=== PATIENT | male | born 1950 | race Caucasian/White ===

== ENCOUNTER → 2017-07-08 | Outpatient (CLI) | payer MEDICARE ==
--- NOTE | 2017-07-08 13:18 | MR ---
EXAMINATION TYPE: MR knee LT wo con DATE OF EXAM: 07/08/2017 COMPARISON: Outside left knee x-ray May 28, 2017 HISTORY: Left knee pain per order. Inner pain for 3 months with history of arthroscopy TECHNIQUE: Multiplanar, multisequence images of the knee is performed without IV contrast. FINDINGS: MEDIAL MENISCUS: Anterior horn is intact without tear. There is oblique increased signal posterior ho rn of medial meniscus appears to extend to inferior articular surface, findings are suggestive of ful l-thickness meniscal tear. LATERAL MENISCUS: Anterior and posterior horns are intact without tear. CRUCIATE LIGAMENTS: The anterior and posterior cruciate ligaments are intact and unremarkable. COLLATERAL LIGAMENTS: The medial collateral ligament and lateral collateral ligament complex are inta ct and unremarkable. EXTENSOR MECHANISM: Visualized quadriceps and patellar tendons are intact. There is some thickening a nd increased signal distal quadriceps tendon. EFFUSION: No significant suprapatellar joint effusion. POPLITEAL CYST: No popliteal/nicole cyst. TRICOMPARTMENT SPACES: Mild to moderate tricompartment joint space loss is seen. There is mild to min imal tricompartment spurring. CARTILAGE: There is mild cartilaginous loss medial tibiofemoral compartment. BONE MARROW SIGNAL: No focal abnormal marrow signal is appreciated. OTHER: No additional significant abnormality is appreciated. IMPRESSION: 1. There is full-thickness tear posterior horn of medial meniscus. 2. There is background mild to moderate diffuse osteoarthritic changes. 3. Mild to moderate distal quadriceps tendinitis.
== END | disposition home or self-care (01) ==
LOC: RADMRIMAIN 12:03
PROVIDERS: ATTEND Orthopaedic Surgery
DX: S83.242A Other tear of medial meniscus, current injury, left knee, initial encounter (principal); M17.12 Unilateral primary osteoarthritis, left knee; M76.9 Unspecified enthesopathy, lower limb, excluding foot

== ENCOUNTER → 2017-08-03 | Outpatient (CLI) | payer MEDICARE ==
[2017-08-03 13:19] LABS: EKG EKG PERFORMED
[2017-08-03 14:01] LABS: Basophils % (A) 1 %; CH 30.6; CHCM 33.9; Eosinophils # (A) 0.1 k/uL (0-0.7); Eosinophils % (A) 2 %; HCT 48.7 % (39.0-53.0); HDW 2.47; HGB 16.3 gm/dL (13.0-17.5); Luc # (Auto) 0.13; Luc % (Auto) 2; Lymphocytes # (A) 1.5 k/uL (1.0-4.8); Lymphocytes % (A) 26 %; MCH 30.3 pg (25.0-35.0); MCHC 33.4 g/dL (31.0-37.0); MCV 90.6 fL (80.0-100.0); Monocytes # (A) 0.4 k/uL (0-1.0); Monocytes % (A) 8 %; Neutrophils # (A) 3.5 k/uL (1.3-7.7); Neutrophils % (A) 61 %; RBC 5.38 m/uL (4.30-5.90); RDW 12.6 % (11.5-15.5); WBC 5.7 k/uL (3.8-10.6); WBC (Perox) 5.47
[2017-08-03 14:14] LABS: Anion Gap 11 mmol/L; Carbon Dioxide 25 mmol/L (22-30); Chloride 104 mmol/L (98-107); Potassium 4.5 mmol/L (3.5-5.1); Sodium 140 mmol/L (137-145)
[2017-08-03 14:46] LABS: Partial Thromboplastin Time 24.3 sec (22.0-30.0); Prothrombin Time 10.3 sec (9.0-12.0)
== END | disposition home or self-care (01) ==
LOC: LABPAT 13:00
PROVIDERS: ATTEND Orthopaedic Surgery
DX: Z01.810 Encounter for preprocedural cardiovascular examination (principal); Z01.812 Encounter for preprocedural laboratory examination; M75.42 Impingement syndrome of left shoulder
CPT/HCPCS: 80051; 85025; 85610; 85730; 93005

== ENCOUNTER → 2017-09-02 | Outpatient (CLI) | payer MEDICARE ==
[2017-09-02 15:15] LABS: Basophils % (A) 1 %; CH 30.8; Eosinophils # (A) 0.2 k/uL (0-0.7); Eosinophils % (A) 3 %; HCT 49.4 % (39.0-53.0); HGB 16.3 gm/dL (13.0-17.5); Luc # (Auto) 0.14; Luc % (Auto) 2; Lymphocytes # (A) 1.8 k/uL (1.0-4.8); Lymphocytes % (A) 30 %; MCH 30.1 pg (25.0-35.0); MCV 91.1 fL (80.0-100.0); Mean Platelet Volume 7.9; Monocytes # (A) 0.5 k/uL (0-1.0); Monocytes % (A) 9 %; Neutrophils # (A) 3.3 k/uL (1.3-7.7); Neutrophils % (A) 55 %; RBC 5.42 m/uL (4.30-5.90); RDW 12.4 % (11.5-15.5); WBC 5.9 k/uL (3.8-10.6); WBC (Perox) 6.01
[2017-09-02 15:31] LABS: ALT 42 U/L (21-72); AST 31 U/L (17-59); Alkaline Phosphatase 70 U/L (38-126); Anion Gap 10 mmol/L; Blood Urea Nitrogen 14 mg/dL (9-20); Calcium 9.6 mg/dL (8.4-10.2); Carbon Dioxide 26 mmol/L (22-30); Chloride 105 mmol/L (98-107); Glucose 86 mg/dL (74-99); Non-African American GFR(MDRD) >60 (>60 ml/min/1.73 sqM); Potassium 4.2 mmol/L (3.5-5.1); Sodium 141 mmol/L (137-145); Total Bilirubin 0.5 mg/dL (0.2-1.3); Total Protein 6.8 g/dL (6.3-8.2)
[2017-09-02 17:08] LABS: Erythrocyte Sedimentation Rate 2 mm/hr (0-15)
[2017-09-02 19:38] LABS: Peanut IgE <0.10 kU/L; Soybean IgE <0.10 kU/L
[2017-09-03 10:56] LABS: Latex IgE Class CLASS 0
== END | disposition home or self-care (01) ==
LOC: LABWHC1 14:26
PROVIDERS: ATTEND Allergy & Immunology
DX: T78.3XXA Angioneurotic edema, initial encounter (principal)
CPT/HCPCS: 36415; 80053; 84443; 85025; 85652; 86003; 86160; 86161; 86376; 86800

== ENCOUNTER → 2019-02-15 | Outpatient (CLI) | payer MEDICARE | END | disposition home or self-care (01) | LOC: RADBDWWP 09:49 | DX: Z53.9 Procedure and treatment not carried out, unspecified reason (principal) ==

== ENCOUNTER 2020-03-27 10:38 | Inpatient (IN) | payer MEDICARE ==
[2020-03-27] MEDS ORDERED: SODIUM CHLORIDE 0.9% 500 ML 500 ML IV ONE (10:58)
[2020-03-27] MEDS ORDERED: ACETAMINOPHEN TAB 325 MG TAB PO STA (11:04)
[2020-03-27] MEDS ORDERED: SODIUM CHLORIDE 0.9% 1,000 ML IV ONE (11:05)
--- NOTE | 2020-03-27 11:12 | ED ---
Fever HPI <Basilio Cai - Last Filed: 03/27/20 13:39> - General Source: patient, family Mode of arrival: ambulatory Limitations: no limitations <Danielle Mclaughlin - Last Filed: 03/27/20 15:26> - General Chief Complaint: Fever Stated Complaint: abd pain Time Seen by Provider: 03/27/20 10:57 - History of Present Illness Initial Comments: 70-year-old male who denies significant PMH presenting today for chief complaint of fever dysuria. Patient states that he has had lower suprapubic pressure and pain when he urinates. Patient states he has also had a fever for the past week, + chills. Continued outside urinalysis ankle turned sensitivity that had no growth patient states he has been on antibiotics however due to an oral procedure. Patient denies chest pain, SOB, nausea, vomiting, diarrhea. Denies constipation. Patient denies cough, sore throat. Patient states he tested (-) for covid outpatient. Patient has no additional complaints. Upon arrival patient febrile 100.5F personally recorded temperature (as patient felt warmer than triage temperature). Hernia repair (left sided) in September 2019. (Danielle Mclaughlin) - Related Data Home Medications Medication Instructions Recorded Confirmed Aspirin [Adult Low Dose Aspirin EC] 81 mg PO DAILY 03/27/20 03/27/20 Atorvastatin Calcium [Lipitor] 20 mg PO DAILY 03/27/20 03/27/20 Levothyroxine Sodium [Synthroid] 75 mcg PO DAILY 03/27/20 03/27/20 Multivitamins, Thera [Multivitamin 1 tab PO DAILY 03/27/20 03/27/20 (formulary)] Omeprazole 20 mg PO DAILY 03/27/20 03/27/20 Zolpidem [Ambien] 5 mg PO HS PRN 03/27/20 03/27/20 Allergies Allergy/AdvReac Type Severity Reaction Status Date / Time levofloxacin [From Levaquin] Allergy Rash/Hives Verified 03/27/20 14:48 ibuprofen [From Advil] AdvReac Swelling Verified 03/27/20 14:47 Review of Systems ROS Other: All systems not noted in ROS Statement are negative. <Basilio Cai - Last Filed: 03/27/20 13:39> ROS Other: All systems not noted in ROS Statement are negative. <Danielle Mclaughlin - Last Filed: 03/27/20 15:26> ROS Statement: Those systems with pertinent positive or pertinent negative responses have been documented in the HPI. Past Medical History Past Medical History: No Reported History History of Any Multi-Drug Resistant Organisms: None Reported Past Surgical History: Hernia Repair Past Psychological History: No Psychological Hx Reported Smoking Status: Never smoker Past Alcohol Use History: Occasional Past Drug Use History: None Reported <Danielle Mclaughlin - Last Filed: 03/27/20 15:26> General Exam Limitations: no limitations <Danielle Mclaughlin - Last Filed: 03/27/20 15:26> Course <Basilio Cai - Last Filed: 03/27/20 13:39> <Danielle Mclaughlin - Last Filed: 03/27/20 15:26> Vital Signs 03/27/20 03/27/20 03/27/20 10:50 11:20 11:48 Temperature 98.4 F 100.5 F H 100.0 F H Pulse Rate 80 75 Respiratory 18 18 Rate Blood Pressure 105/73 120/79 O2 Sat by Pulse 96 96 Oximetry 03/27/20 13:00 Temperature Pulse Rate 88 Respiratory 20 Rate Blood Pressure 116/75 O2 Sat by Pulse 99 Oximetry - Reevaluation(s) Reevaluation #1: 03/27/20 13:40 PA supervision: I personally evaluate the case and the patient patient did present with complaints of chills and fever for the past week with dysuria BuSpar however the workup is consistent with a fever of unknown origin. Patient will be admitted the case was discussed with Dr. Lubin (Basilio Cai) Reevaluation #2: More focused exam, patient dose seem to have a small localized area of tenderness left lower abdomen, no obvious external abscess. 03/27/20 14:46 (Danielle Mclaughlin) Medical Decision Making - Lab Data Result diagrams: 03/27/20 11:10 03/27/20 11:10 <Basilio Cai - Last Filed: 03/27/20 13:39> - Lab Data Result diagrams: 03/27/20 11:10 03/27/20 11:10 <Danielle Mclaughlin - Last Filed: 03/27/20 15:26> - Medical Decision Making 70-year-old male presented for fevers 1 week. Lab stable patient does not appear toxic however he is febrile in the emergency department. Patient on initial examination has no severe focalize exam he has some suprapubic tenderness. Patient states he has had chronic pain and his hernia since September. He states there is no increase mild tenderness to palpation of the left lower abdomen over the hernia site. Initially patient did not feel this was related to his abdomen he thought it was a UTI. Urinalysis unremarkable. Culture pending. Blood culture pending. Troponin negative. CT was ordered given there is no known origin of fever revealing a rectus sheath abscess 5.[address] Keyes consulted who is agreeable to consulting his service. IV abx initiated in ER, added vancoymycin. Patient case accepted by Dr Restrepo. (Danielle Mclaughlin) - Lab Data Lab Results 03/27/20 03/27/20 03/27/20 Range/Units 11:10 11:10 11:10 WBC 9.3 (3.8-10.6) k/uL RBC 5.02 (4.30-5.90) m/uL Hgb 14.7 (13.0-17.5) gm/dL Hct 44.5 (39.0-53.0) % MCV 88.7 (80.0-100.0) fL MCH 29.4 (25.0-35.0) pg MCHC 33.1 (31.0-37.0) g/dL RDW 13.3 (11.5-15.5) % Plt Count 359 (150-450) k/uL Neutrophils % 76 % Lymphocytes % 15 % Monocytes % 6 % Eosinophils % 2 % Basophils % 0 % Neutrophils # 7.1 (1.3-7.7) k/uL Lymphocytes # 1.4 (1.0-4.8) k/uL Monocytes # 0.6 (0-1.0) k/uL Eosinophils # 0.1 (0-0.7) k/uL Basophils # 0.0 (0-0.2) k/uL Sodium (137-145) mmol/L Potassium (3.5-5.1) mmol/L Chloride (98-107) mmol/L Carbon Dioxide (22-30) mmol/L Anion Gap mmol/L BUN (9-20) mg/dL Creatinine (0.66-1.25) mg/dL Est GFR (CKD-EPI)AfAm (>60 ml/min/1.73 sqM) Est GFR (CKD-EPI)NonAf (>60 ml/min/1.73 sqM) Glucose (74-99) mg/dL Plasma Lactic Acid Jose (0.7-2.0) mmol/L Calcium (8.4-10.2) mg/dL Total Bilirubin (0.2-1.3) mg/dL AST (17-59) U/L ALT (4-49) U/L Alkaline Phosphatase (38-126) U/L Troponin I (0.000-0.034) ng/mL Total Protein (6.3-8.2) g/dL Albumin (3.5-5.0) g/dL Urine Color Yellow Urine Appearance Clear (Clear) Urine pH 5.5 (5.0-8.0) Ur Specific [place] 1.026 (1.001-1.035) Urine Protein Trace H (Negative) Urine Glucose (UA) Negative (Negative) Urine Ketones Negative (Negative) Urine Blood Negative (Negative) Urine Nitrite Negative (Negative) Urine Bilirubin Negative (Negative) Urine Urobilinogen 2.0 (<2.0) mg/dL Ur Leukocyte Esterase Negative (Negative) Heterophile Antibody Negative (Negative) 03/27/20 03/27/20 03/27/20 Range/Units 11:10 11:10 11:10 WBC (3.8-10.6) k/uL RBC (4.30-5.90) m/uL Hgb (13.0-17.5) gm/dL Hct (39.0-53.0) % MCV (80.0-100.0) fL MCH (25.0-35.0) pg MCHC (31.0-37.0) g/dL RDW (11.5-15.5) % Plt Count (150-450) k/uL Neutrophils % % Lymphocytes % % Monocytes % % Eosinophils % % Basophils % % Neutrophils # (1.3-7.7) k/uL Lymphocytes # (1.0-4.8) k/uL Monocytes # (0-1.0) k/uL Eosinophils # (0-0.7) k/uL Basophils # (0-0.2) k/uL Sodium 136 L (137-145) mmol/L Potassium 4.4 (3.5-5.1) mmol/L Chloride 103 (98-107) mmol/L Carbon Dioxide 24 (22-30) mmol/L Anion Gap 9 mmol/L BUN 13 (9-20) mg/dL Creatinine 0.63 L (0.66-1.25) mg/dL Est GFR (CKD-EPI)AfAm >90 (>60 ml/min/1.73 sqM) Est GFR (CKD-EPI)NonAf >90 (>60 ml/min/1.73 sqM) Glucose 110 H (74-99) mg/dL Plasma Lactic Acid Jose 1.2 (0.7-2.0) mmol/L Calcium 9.4 (8.4-10.2) mg/dL Total Bilirubin 0.7 (0.2-1.3) mg/dL AST 53 (17-59) U/L ALT 62 H (4-49) U/L Alkaline Phosphatase 69 (38-126) U/L Troponin I <0.012 (0.000-0.034) ng/mL Total Protein 6.5 (6.3-8.2) g/dL Albumin 3.6 (3.5-5.0) g/dL Urine Color Urine Appearance (Clear) Urine pH (5.0-8.0) Ur Specific [place] (1.001-1.035) Urine Protein (Negative) Urine Glucose (UA) (Negative) Urine Ketones (Negative) Urine Blood (Negative) Urine Nitrite (Negative) Urine Bilirubin (Negative) Urine Urobilinogen (<2.0) mg/dL Ur Leukocyte Esterase (Negative) Heterophile Antibody (Negative) Disposition <Basilio Cai - Last Filed: 03/27/20 13:39> Is patient prescribed a controlled substance at d/c from ED?: No Time of Disposition: 13:54 Decision to Admit Reason: Admit from EC Decision Date: 03/27/20 Decision Time: 13:54 <Danielle Mclaughlin - Last Filed: 03/27/20 15:26> Clinical Impression: Dysuria, Rectus sheath abscess Disposition: ADMITTED IP TO THIS [facility] Condition: Stable
[2020-03-27 11:34] LABS: Basophils % (A) 0 %; Eosinophils # (A) 0.1 k/uL (0-0.7); Eosinophils % (A) 2 %; HCT 44.5 % (39.0-53.0); HGB 14.7 gm/dL (13.0-17.5); Lymphocytes # (A) 1.4 k/uL (1.0-4.8); Lymphocytes % (A) 15 %; MCH 29.4 pg (25.0-35.0); MCHC 33.1 g/dL (31.0-37.0); MCV 88.7 fL (80.0-100.0); Mean Platelet Volume 7.5; Monocytes # (A) 0.6 k/uL (0-1.0); Monocytes % (A) 6 %; Neutrophils # (A) 7.1 k/uL (1.3-7.7); Neutrophils % (A) 76 %; Platelet Count 359 k/uL (150-450); RBC 5.02 m/uL (4.30-5.90); RDW 13.3 % (11.5-15.5); WBC 9.3 k/uL (3.8-10.6)
[2020-03-27 11:38] LABS: Appearance,Urine Clear (Clear); Bilirubin,Urine Negative (Negative); Blood,Urine Negative (Negative); Color,Urine Yellow; Glucose,Urine (UA) Negative (Negative); Ketones,Urine Negative (Negative); Leukocyte Esterase,Urine Negative (Negative); Nitrite,Urine Negative (Negative); PH, Urine 5.5 (5.0-8.0); Protein,Urine Trace (Negative); Specific Gravity,Urine 1.026 (1.001-1.035)
[2020-03-27 11:42] LABS: ALT 62 U/L (4-49); AST 53 U/L (17-59); African American GFR (CKD) >90 (>60 ml/min/1.73 sqM); Albumin 3.6 g/dL (3.5-5.0); Alkaline Phosphatase 69 U/L (38-126); Anion Gap 9 mmol/L; Blood Urea Nitrogen 13 mg/dL (9-20); Calcium 9.4 mg/dL (8.4-10.2); Carbon Dioxide 24 mmol/L (22-30); Chloride 103 mmol/L (98-107); Glucose 110 mg/dL (74-99); Non-African American GFR(CKD) >90 (>60 ml/min/1.73 sqM); Potassium 4.4 mmol/L (3.5-5.1); Sodium 136 mmol/L (137-145); Total Bilirubin 0.7 mg/dL (0.2-1.3); Total Protein 6.5 g/dL (6.3-8.2)
[2020-03-27] MEDS: SODIUM CHLORIDE 0.9% 1,000 ML IV SCH ×2 (12:08→20:57)
--- NOTE | 2020-03-27 13:38 | XR ---
EXAMINATION TYPE: XR chest 2V DATE OF EXAM: 03/27/2020 COMPARISON: NONE TECHNIQUE: PA and lateral views submitted. HISTORY: Fever and body aches FINDINGS: The lungs are clear and there is no pneumothorax, pleural effusion, or focal pneumonia. No overt fa ilure. Scoliotic curvature and hypertrophic changes spine. Diffuse osteopenia with arthropathy of the shoulders. IMPRESSION: 1. No acute process.
[2020-03-27] MEDS ORDERED: PIPERACILLIN-TAZOBACTAM 3.375 GM in SODIUM CHLORIDE 0.9% 100 ML IVPB STA (13:54)
[2020-03-27] MEDS ORDERED: NALOXONE 0.4 MG/ML 1 ML VIAL IV PRN ×2 (13:54→15:39)
--- NOTE | 2020-03-27 14:24 | CT ---
EXAMINATION TYPE: CT abdomen pelvis w con DATE OF EXAM: 03/27/2020 COMPARISON: Fever of unknown origin and dysuria HISTORY: Fever of unknown origin. Dysuria. CT DLP: 1218.2 mGycm Automated exposure control for dose reduction was used. CONTRAST: CT scan of the abdomen pelvis is performed with IV Contrast, patient injected with 100 mL of Isovue 3 00. FINDINGS- LUNG BASES- No significant abnormality is appreciated. LIVER/GB- No gross abnormality is appreciated. PANCREAS- No gross abnormality is seen. SPLEEN- No gross abnormality is seen. ADRENALS- No gross abnormality is seen. KIDNEYS/BLADDER- no hydronephrosis nephrolithiasis or renal mass. BOWEL-bowel gas pattern nonspecific. Changes of diverticulosis noted. Small hiatal hernia noted.. LYMPH NODES- No greater than 1cm abdominal or pelvic lymph nodes areappreciated. OSSEOUS STRUCTURES-hypertrophic and degenerative change of the spine.. OTHER- there is a abnormal fluid collection anterior to the bladder on the left measuring 5.5 x 3.7 cm highly suggestive of an abscess. Extends from the pubic ramus superiorly toward the rectus muscle. There is a left diaphragmatic defect. IMPRESSION- 1. Posterior to the left rectus muscle there is a 5.5 cm suspected abscess. Correlate clinically.
[2020-03-27] MEDS ORDERED: VANCOMYCIN IV PER PHARMACY 1 EACH MISC MISCELLANE PRN ×2 (14:46→15:27)
[2020-03-27] MEDS ORDERED: VANCOMYCIN 1,500 MG in SODIUM CHLORIDE 0.9% 250 ML IVPB SCH (15:30)
--- NOTE | 2020-03-27 15:39 | P.HPIM ---
History of Present Illness H&P Date: 03/27/20 Chief Complaint: Fever 70-year-old male with history of hypothyroidism and hyperlipidemia presented to the emergency department because of persistent fevers, chills and headaches. He also has left lower quadrant abdominal pain, as well as lower suprapubic pressure, no nausea or vomiting. No chills. He also is complaining from urinary symptoms that includes hesitency and slow flow. No dysuria. Symptoms have been going on for the past week. He recently had a root canal and has been on clindamycin for the past month. Just finished it a few days ago. According to patient he followed up with a dentist and everything looked good. No chest pain or shortness of breath. No sick contacts, no runny nose or sore throat. Patient states he tested (-) for covid outpatient. Patient has no additional complaints. Upon arrival to the ER he was febrile with temp of 100.5F. CT scan of the abdomen and pelvis showed intraabdominal abscess in front of the rectus muscle on the left, anterior to the bladder. He was subseqently admitted for further evaluation and treatment. Review of Systems Complete review of system performed, pertinent positives per HPI otherwise negative Past Medical History Past Medical History: No Reported History History of Any Multi-Drug Resistant Organisms: None Reported Past Surgical History: Hernia Repair Past Psychological History: No Psychological Hx Reported Smoking Status: Never smoker Past Alcohol Use History: Occasional Past Drug Use History: None Reported Medications and Allergies Home Medications Medication Instructions Recorded Confirmed Type Aspirin [Adult Low Dose Aspirin EC] 81 mg PO DAILY 03/27/20 03/27/20 History Atorvastatin Calcium [Lipitor] 20 mg PO DAILY 03/27/20 03/27/20 History Levothyroxine Sodium [Synthroid] 75 mcg PO DAILY 03/27/20 03/27/20 History Multivitamins, Thera [Multivitamin 1 tab PO DAILY 03/27/20 03/27/20 History (formulary)] Omeprazole 20 mg PO DAILY 03/27/20 03/27/20 History Zolpidem [Ambien] 5 mg PO HS PRN 03/27/20 03/27/20 History Allergies Allergy/AdvReac Type Severity Reaction Status Date / Time levofloxacin [From Levaquin] Allergy Rash/Hives Verified 03/27/20 14:48 ibuprofen [From Advil] AdvReac Swelling Verified 03/27/20 14:47 Physical Exam Vitals: Vital Signs Temp Pulse Resp BP Pulse Ox 03/27/20 13:00 88 20 116/75 99 03/27/20 11:48 100.0 F H 75 18 120/79 96 03/27/20 11:20 100.5 F H 03/27/20 10:50 98.4 F 80 18 105/73 96 Intake and Output 03/26/20 03/27/20 03/27/20 22:59 06:59 14:59 Other: Weight 84.368 kg Constitutional: No acute distress, conversant, pleasant Eyes:Anicteric sclerae, moist conjunctiva, no lid-lag, PERRLA, ENMT: Oropharynx clear, no erythema, exudates Neck: Supple, FROM, no masses, or JVD, No carotid bruits, No thyromegaly Lungs: Clear to auscultation, Clear to percussion, Normal respiratory effort, no accessory muscle use Cardiovascular: Heart regular in rate and rhythm, No murmurs, gallops, or rubs, No peripheral edema Abdominal: Soft, tender in the suprapubic and the LLQ areas, no guarding, reboun d or rigidity, Normoactive bowel sounds, No hepatomegaly, No splenomegaly, No palpable mass Skin: Normal temperature, tone, texture, turgor, no induration, No subcutaneous nodules, No rash, lesions, No ulcers Extremities: No digital cyanosis, No clubbing, Pedal pulses intact and symmetrical, Radial pulses intact and symmetrical, No calf tenderness Psychiatric: Alert and oriented to person, place and time, appropriate affect, intact judgement Neuro: Muscles Strength 5/5 in all 4 extremities, Sensation to light touch grossly present throughout, Cranial nerves II-XII grossly intact, no focal sensory deficits Results CBC & Chem 7: 03/27/20 11:10 03/27/20 11:10 Labs: Abnormal Lab Results - Last 24 Hours (Table) 03/27/20 03/27/20 Range/Units 11:10 11:10 Sodium 136 L (137-145) mmol/L Creatinine 0.63 L (0.66-1.25) mg/dL Glucose 110 H (74-99) mg/dL ALT 62 H (4-49) U/L Urine Protein Trace H (Negative) Assessment and Plan Plan: Intraabdominal abscess Start zosyn Consult general surgery and urology Tylenol prn for fevers and pain Chronic medical issues: Hypothyroidism Hyperlipidemia Mild COPD Stable Resume home meds Admitted to inpatient expected length of stay more than 2 midnights
[2020-03-27] MEDS: ACETAMINOPHEN TAB 325 MG TAB PO SCH ×2 (15:55→21:06)
--- NOTE | 2020-03-27 18:25 | P.GSCN ---
History of Present Illness Consult date: 03/27/20 Reason for Consult: Rectus sheath abscess History of present illness: This a 70-year-old male who presented with possible colitis abdominal pain. Patient underwent previous robotic-assisted repair of inguinal hernia proximal to 6 months ago. Patient developed a left-sided rectus sheath abscess. Patient had pain and fevers for the last 24 hours. Past Medical History Past Medical History: No Reported History History of Any Multi-Drug Resistant Organisms: None Reported Past Surgical History: Hernia Repair Past Psychological History: No Psychological Hx Reported Smoking Status: Never smoker Past Alcohol Use History: Occasional Past Drug Use History: None Reported Medications and Allergies Home Medications Medication Instructions Recorded Confirmed Type Aspirin [Adult Low Dose Aspirin EC] 81 mg PO DAILY 03/27/20 03/27/20 History Atorvastatin Calcium [Lipitor] 20 mg PO DAILY 03/27/20 03/27/20 History Levothyroxine Sodium [Synthroid] 75 mcg PO DAILY 03/27/20 03/27/20 History Multivitamins, Thera [Multivitamin 1 tab PO DAILY 03/27/20 03/27/20 History (formulary)] Omeprazole 20 mg PO DAILY 03/27/20 03/27/20 History Zolpidem [Ambien] 5 mg PO HS PRN 03/27/20 03/27/20 History Allergies Allergy/AdvReac Type Severity Reaction Status Date / Time levofloxacin [From Levaquin] Allergy Rash/Hives Verified 03/27/20 14:48 ibuprofen [From Advil] AdvReac Swelling Verified 03/27/20 14:47 Surgical - Exam Vital Signs Temp Pulse Resp BP Pulse Ox 98.4 F 80 18 105/73 96 03/27/20 10:50 03/27/20 10:50 03/27/20 10:50 03/27/20 10:50 03/27/20 10:50 - General well developed, well nourished, no distress - Eyes PERRL - ENT normal pinna - Neck no masses - Respiratory normal expansion - Cardiovascular Rhythm: regular - Abdomen Minimal tenderness left lower quadrant Abdomen: soft Results - Labs 03/27/20 11:10 03/27/20 11:10 Abnormal Lab Results - Last 24 Hours (Table) 03/27/20 03/27/20 Range/Units 11:10 11:10 Sodium 136 L (137-145) mmol/L Creatinine 0.63 L (0.66-1.25) mg/dL Glucose 110 H (74-99) mg/dL ALT 62 H (4-49) U/L Urine Protein Trace H (Negative) Microbiology - Last 24 Hours (Table) 03/27/20 11:10 Urine Culture - Preliminary Urine,Voided Diabetes panel 03/27/20 Range/Units 11:10 Sodium 136 L (137-145) mmol/L Potassium 4.4 (3.5-5.1) mmol/L Chloride 103 (98-107) mmol/L Carbon Dioxide 24 (22-30) mmol/L BUN 13 (9-20) mg/dL Creatinine 0.63 L (0.66-1.25) mg/dL Glucose 110 H (74-99) mg/dL Calcium 9.4 (8.4-10.2) mg/dL AST 53 (17-59) U/L ALT 62 H (4-49) U/L Alkaline Phosphatase 69 (38-126) U/L Total Protein 6.5 (6.3-8.2) g/dL Albumin 3.6 (3.5-5.0) g/dL Calcium panel 03/27/20 Range/Units 11:10 Calcium 9.4 (8.4-10.2) mg/dL Albumin 3.6 (3.5-5.0) g/dL Pituitary panel 03/27/20 Range/Units 11:10 Sodium 136 L (137-145) mmol/L Potassium 4.4 (3.5-5.1) mmol/L Chloride 103 (98-107) mmol/L Carbon Dioxide 24 (22-30) mmol/L BUN 13 (9-20) mg/dL Creatinine 0.63 L (0.66-1.25) mg/dL Glucose 110 H (74-99) mg/dL Calcium 9.4 (8.4-10.2) mg/dL Adrenal panel 03/27/20 Range/Units 11:10 Sodium 136 L (137-145) mmol/L Potassium 4.4 (3.5-5.1) mmol/L Chloride 103 (98-107) mmol/L Carbon Dioxide 24 (22-30) mmol/L BUN 13 (9-20) mg/dL Creatinine 0.63 L (0.66-1.25) mg/dL Glucose 110 H (74-99) mg/dL Calcium 9.4 (8.4-10.2) mg/dL Total Bilirubin 0.7 (0.2-1.3) mg/dL AST 53 (17-59) U/L ALT 62 H (4-49) U/L Alkaline Phosphatase 69 (38-126) U/L Total Protein 6.5 (6.3-8.2) g/dL Albumin 3.6 (3.5-5.0) g/dL - Imaging CT scan - abdomen: report reviewed (6 cm posterior left rectus sheath abscess) Assessment and Plan Assessment: Posterior rectus sheath abscess. We'll consult interventional radiology for po tential drainage.
[2020-03-28] MEDS: PIPERACILLIN-TAZOBACTAM 3.375 GM in SODIUM CHLORIDE 0.9% 100 ML IVPB SCH ×4 (00:48→22:49)
[2020-03-28] MEDS: ACETAMINOPHEN TAB 325 MG TAB PO SCH ×4 (03:14→20:21)
[2020-03-28] MEDS: LEVOTHYROXINE 75 MCG TAB PO SCH (05:47)
[2020-03-28] MEDS: SODIUM CHLORIDE 0.9% 1,000 ML IV SCH ×2 (05:47→15:11)
[2020-03-28] MEDS: MULTIVITAMINS, THERA 1 EACH TAB PO SCH (07:17)
[2020-03-28] MEDS: ATORVASTATIN 20 MG TAB PO SCH (07:17)
[2020-03-28] MEDS: ASPIRIN 81 MG PO SCH (07:17)
[2020-03-28] MEDS: PANTOPRAZOLE 40 MG TABLET PO SCH (07:21)
[2020-03-28] MEDS: HYDROmorphone 1 MG/ML 1 ML SYRINGE IVP PRN ×3 (08:24→22:49)
[2020-03-28 09:07] LABS: Basophils % (A) 0 %; Eosinophils # (A) 0.2 k/uL (0-0.7); Eosinophils % (A) 2 %; HCT 39.8 % (39.0-53.0); HGB 13.4 gm/dL (13.0-17.5); Lymphocytes % (A) 13 %; MCHC 33.7 g/dL (31.0-37.0); Mean Platelet Volume 7.7; Monocytes # (A) 0.5 k/uL (0-1.0); Monocytes % (A) 6 %; Neutrophils # (A) 6.3 k/uL (1.3-7.7); Neutrophils % (A) 77 %; Platelet Count 360 k/uL (150-450); RBC 4.47 m/uL (4.30-5.90); RDW 13.1 % (11.5-15.5); WBC 8.2 k/uL (3.8-10.6)
[2020-03-28 09:24] LABS: ALT 56 U/L (4-49); AST 42 U/L (17-59); African American GFR (CKD) >90 (>60 ml/min/1.73 sqM); Albumin 3.1 g/dL (3.5-5.0); Alkaline Phosphatase 66 U/L (38-126); Anion Gap 7 mmol/L; Blood Urea Nitrogen 8 mg/dL (9-20); Calcium 8.7 mg/dL (8.4-10.2); Carbon Dioxide 23 mmol/L (22-30); Chloride 107 mmol/L (98-107); Glucose 89 mg/dL (74-99); Magnesium 1.9 mg/dL (1.6-2.3); Non-African American GFR(CKD) >90 (>60 ml/min/1.73 sqM); Phosphorus 3.3 mg/dL (2.5-4.5); Potassium 4.2 mmol/L (3.5-5.1); Sodium 137 mmol/L (137-145); Total Bilirubin 0.7 mg/dL (0.2-1.3); Total Protein 5.8 g/dL (6.3-8.2)
[2020-03-28 10:01] LABS: Prothrombin Time 10.2 sec (9.0-12.0)
[2020-03-28] MEDS: ONDANSETRON 4 MG/2 ML VIAL IVP PRN (10:43)
--- NOTE | 2020-03-28 11:57 | P.PN ---
Subjective Progress Note Date: 03/28/20 Principal diagnosis: Groin pain Patient has been having a lot of left groin pain. He was given IV Dilaudid and it barely helped him. No nausea or vomiting. Objective - Vital Signs Vital signs: Vital Signs Temp 99.0 F 03/28/20 07:00 Pulse 71 03/28/20 07:00 Resp 18 03/28/20 07:00 BP 115/69 03/28/20 07:00 Pulse Ox 96 03/28/20 07:00 Intake & Output 03/27/20 03/28/20 03/28/20 18:59 06:59 18:59 Weight 84.368 kg 84.368 kg Other: Voiding Method Toilet - Exam Constitutional: No acute distress, conversant, pleasant Eyes:Anicteric sclerae, moist conjunctiva, no lid-lag, PERRLA, ENMT: Oropharynx clear, no erythema, exudates Neck: Supple, FROM, no masses, or JVD, No carotid bruits, No thyromegaly Lungs: Clear to auscultation, Clear to percussion, Normal respiratory effort, no accessory muscle use Cardiovascular: Heart regular in rate and rhythm, No murmurs, gallops, or rubs, No peripheral edema Abdominal: Soft, tender in the suprapubic and the LLQ areas, no guarding, rebound or rigidity, Normoactive bowel sounds, No hepatomegaly, No splenomegaly, No palpable mass Skin: Normal temperature, tone, texture, turgor, no induration, No subcutaneous nodules, No rash, lesions, No ulcers Extremities: No digital cyanosis, No clubbing, Pedal pulses intact and symmetrical, Radial pulses intact and symmetrical, No calf tenderness Psychiatric: Alert and oriented to person, place and time, appropriate affect, intact judgement Neuro: Muscles Strength 5/5 in all 4 extremities, Sensation to light touch grossly present throughout, Cranial nerves II-XII grossly intact, no focal sensory deficits - Labs CBC & Chem 7: 03/28/20 08:22 03/28/20 08:22 Labs: Abnormal Lab Results - Last 24 Hours (Table) 03/27/20 03/27/20 03/28/20 Range/Units 11:10 11:10 08:22 Sodium 136 L (137-145) mmol/L BUN 8 L (9-20) mg/dL Creatinine 0.63 L 0.60 L (0.66-1.25) mg/dL Glucose 110 H (74-99) mg/dL ALT 62 H 56 H (4-49) U/L Total Protein 5.8 L (6.3-8.2) g/dL Albumin 3.1 L (3.5-5.0) g/dL Urine Protein Trace H (Negative) Microbiology - Last 24 Hours (Table) 03/27/20 11:10 Urine Culture - Preliminary Urine,Voided Assessment and Plan Plan: Intraabdominal abscess Continue zosyn Seen by general surgery, plan for IR drainage Consult urology, abscess close to the bladder and patient having urinary symptoms Tylenol and dilaudid prn for fevers and pain Add miralax for constipation prophylaxis Chronic medical issues: Hypothyroidism Hyperlipidemia Mild COPD Stable Resume home meds Anticipated discharge: 2-3 days Disposition: home
[2020-03-28] MEDS: POLYETHYLENE GLYCOL 3350 17 GM POWD.PACK PO SCH (13:58)
--- NOTE | 2020-03-28 14:03 | CT ---
EXAMINATION TYPE: CT guided abscess drainage DATE OF EXAM: 03/28/2020 HISTORY: Status post hernia repair, abdominal fluid collection COMPARISON: CT dated 03/27/2020 PROCEDURE: Maximal barrier technique was utilized. The skin over suitable path to the abdominal fluid collectio n in the lower abdomen anteriorly was localized with CT and the overlying skin prepped and draped. L idocaine was used for local anesthesia. A skin chely made with a scalpel. Access was gained using CT guidance with a 21-gauge needle, clear yellow material returned in the hub of the needle. A 0.018 i nch wire was advanced and the access site was upsized, the wire was upsized and subsequently an 8.5-F rench drain was deployed within the fluid cavity and fixed in place. Catheter attached to hal lozada. Catheter placement verified with CT. No immediate complication. 20 cc yellow fluid material s ent for laboratory analysis and draining into the bag. The patient remained in stable condition. IMPRESSION: STATUS POST CT GUIDED ABSCESS DRAINAGE, MICROBIOLOGY ANALYSIS IS PENDING. THIS PROCEDURE WAS PERFORM ED BY THE UNDERSIGNED.
[2020-03-28] MEDS: HYDROcodone/APAP 5-325MG 1 EACH TAB PO PRN ×2 (15:01→18:32)
--- NOTE | 2020-03-28 15:40 | P.PN ---
Progress Note - Text Progress Note Date: 03/28/20 The patient is feeling better. He underwent CT-guided drainage of his abdominal abscess. Approximately 30 mL of purulent fluid was removed. There is a draining catheter in place. On exam his vital signs are stable. His abdomen soft. Status post radiologic drainage of abdominal abscess. Patient received IV antibiotic. We will follow carefully.
[2020-03-29] MEDS ORDERED: ACETAMINOPHEN TAB 325 MG TAB ONE (03:35)
[2020-03-29] MEDS ORDERED: HYDROmorphone 1 MG/ML 1 ML SYRINGE ONE (03:35)
[2020-03-29] MEDS: ACETAMINOPHEN TAB 325 MG TAB PO SCH ×4 (04:55→19:59)
[2020-03-29] MEDS: ONDANSETRON 4 MG/2 ML VIAL IVP PRN (05:06)
[2020-03-29] MEDS: SODIUM CHLORIDE 0.9% 1,000 ML IV SCH ×3 (05:18→19:59)
[2020-03-29] MEDS: LEVOTHYROXINE 75 MCG TAB PO SCH (05:19)
[2020-03-29] MEDS ORDERED: KETOROLAC 30 MG/ML 1 ML VIAL IVP PRN (07:25)
[2020-03-29] MEDS: ASPIRIN 81 MG PO SCH (07:42)
[2020-03-29] MEDS: MULTIVITAMINS, THERA 1 EACH TAB PO SCH (07:42)
[2020-03-29] MEDS: ATORVASTATIN 20 MG TAB PO SCH (07:42)
[2020-03-29] MEDS: PIPERACILLIN-TAZOBACTAM 3.375 GM in SODIUM CHLORIDE 0.9% 100 ML IVPB SCH ×3 (07:44→23:22)
[2020-03-29] MEDS: POLYETHYLENE GLYCOL 3350 17 GM POWD.PACK PO SCH (07:44)
[2020-03-29] MEDS: PANTOPRAZOLE 40 MG TABLET PO SCH (07:44)
[2020-03-29 07:51] LABS: African American GFR (CKD) >90 (>60 ml/min/1.73 sqM); Non-African American GFR(CKD) >90 (>60 ml/min/1.73 sqM)
[2020-03-29] MEDS ORDERED: BUTALB/APAP/CAFF 50-325-40MG TAB PO STA (10:06)
--- NOTE | 2020-03-29 10:12 | P.PN ---
Subjective Progress Note Date: 03/29/20 Principal diagnosis: Groin pain Having severe headaches and has not slept well last night due to that. No fevers. He does have headaches like this normally and it is not something new to him. No chest pain or sob. Objective - Vital Signs Vital signs: Vital Signs Temp 98.4 F 03/29/20 07:00 Pulse 54 L 03/29/20 07:00 Resp 17 03/29/20 07:00 BP 119/74 03/29/20 07:00 Pulse Ox 95 03/29/20 07:00 Intake & Output 03/28/20 03/29/20 03/29/20 18:59 06:59 18:59 Other: Voiding Method Toilet # Voids 3 - Exam Constitutional: No acute distress, conversant, pleasant Eyes:Anicteric sclerae, moist conjunctiva, no lid-lag, PERRLA, ENMT: Oropharynx clear, no erythema, exudates Neck: Supple, FROM, no masses, or JVD, No carotid bruits, No thyromegaly Lungs: Clear to auscultation, Clear to percussion, Normal respiratory effort, no accessory muscle use Cardiovascular: Heart regular in rate and rhythm, No murmurs, gallops, or rubs, No peripheral edema Abdominal: Soft, tender in the suprapubic and the LLQ areas, no guarding, rebound or rigidity, Normoactive bowel sounds, No hepatomegaly, No splenomegaly, No palpable mass Skin: Normal temperature, tone, texture, turgor, no induration, No subcutaneous nodules, No rash, lesions, No ulcers Extremities: No digital cyanosis, No clubbing, Pedal pulses intact and symmetrical, Radial pulses intact and symmetrical, No calf tenderness Psychiatric: Alert and oriented to person, place and time, appropriate affect, intact judgement Neuro: Muscles Strength 5/5 in all 4 extremities, Sensation to light touch grossly present throughout, Cranial nerves II-XII grossly intact, no focal sensory deficits - Labs CBC & Chem 7: 03/28/20 08:22 03/29/20 07:16 Labs: Abnormal Lab Results - Last 24 Hours (Table) 03/29/20 Range/Units 07:16 Creatinine 0.55 L (0.66-1.25) mg/dL Microbiology - Last 24 Hours (Table) 03/28/20 13:00 Gram Stain - Preliminary Peritoneal Fluid Body Fluid Culture - Preliminary 03/28/20 13:00 Anaerobic Culture - Preliminary Peritoneal Fluid 03/27/20 11:10 Urine Culture - Final Urine,Voided 03/27/20 12:00 Blood Culture - Preliminary Blood No Growth after 24 hours Assessment and Plan Plan: Intraabdominal abscess s/p hernia repair surgery in september last year Continue zosyn S/p CT guided drainage by IR, now has a drain in place. Cultures sent awaiting results. Followed by general surgery, Add fioricet and toradol for headaches Tylenol and dilaudid prn for fevers and pain Miralax for constipation prophylaxis Chronic medical issues: Hypothyroidism Hyperlipidemia Mild COPD Stable Resume home meds Anticipated discharge: 2-3 days Disposition: home
--- NOTE | 2020-03-29 11:47 | P.PN ---
Progress Note - Text Progress Note Date: 03/29/20 Patient resting comfortably in bed. He has complaints of migraines at night. On exam his vital signs are stable. Abdomen soft. Drainage catheter has some serosanguineous drainage. Status post radiological drainage of abdominal abscess. Patient will receive IV antibiotics. Despite discharged home tomorrow.
[2020-03-29] MEDS ORDERED: diphenhydrAMINE 50 MG/ML 1 ML VIAL IVP STA (14:13)
[2020-03-29] MEDS: KETOROLAC 30 MG/ML 1 ML VIAL IVP SCH ×2 (14:27→16:42)
--- NOTE | 2020-03-29 16:10 | P.GSCN ---
History of Present Illness Consult date: 03/29/20 Reason for Consult: dysuria History of present illness: Mr Lucero is a 70-year-old male admitted to the hospital with rectal sheath abscess and fever. He also is complaining from urinary symptoms that includes hesitancy, weak stream and urgency. Those symptoms are of new onset. . CT scan of the abdomen and pelvis showed intraabdominal abscess in front of the rectus muscle on the left, anterior to the bladder. He was subseqently admitted for further evaluation and treatment. indicates since IR abscess drainage has noticed some improvement of bladder symptoms. Denies any gross hematuria. He has family history of prostate cancer Review of Systems - Constitutional Reports chills, Reports fever - Cardiovascular Denies chest pain, Denies dyspnea on exertion - Respiratory Denies cough, Denies dyspnea - Genitourinary Reports dysuria, Reports urinary frequency, Reports urinary hesitancy, Denies flank pain, Denies hematuria, Denies incontinence - Psychiatric Denies anxiety, Denies confusion Past Medical History Past Medical History: GERD/Reflux, Thyroid Disorder History of Any Multi-Drug Resistant Organisms: None Reported Past Surgical History: Hernia Repair, Orthopedic Surgery Past Anesthesia/Blood Transfusion Reactions: No Reported Reaction Past Psychological History: No Psychological Hx Reported Smoking Status: Former smoker Past Alcohol Use History: Occasional Past Drug Use History: None Reported Medications and Allergies Home Medications Medication Instructions Recorded Confirmed Type Aspirin [Adult Low Dose Aspirin EC] 81 mg PO DAILY 03/27/20 03/27/20 History Atorvastatin Calcium [Lipitor] 20 mg PO DAILY 03/27/20 03/27/20 History Levothyroxine Sodium [Synthroid] 75 mcg PO DAILY 03/27/20 03/27/20 History Multivitamins, Thera [Multivitamin 1 tab PO DAILY 03/27/20 03/27/20 History (formulary)] Omeprazole 20 mg PO DAILY 03/27/20 03/27/20 History Zolpidem [Ambien] 5 mg PO HS PRN 03/27/20 03/27/20 History Allergies Allergy/AdvReac Type Severity Reaction Status Date / Time levofloxacin [From Levaquin] Allergy Rash/Hives Verified 03/28/20 12:31 ibuprofen [From Advil] AdvReac Swelling Verified 03/28/20 12:31 Surgical - Exam Vital Signs Temp Pulse Resp BP Pulse Ox 98.4 F 80 18 105/73 96 03/27/20 10:50 03/27/20 10:50 03/27/20 10:50 03/27/20 10:50 03/27/20 10:50 - General well developed, well nourished, no distress, no pain - Eyes PERRL, normal ocular movement - Respiratory normal expansion, normal respiratory effort - Abdomen Abdomen: soft, non tender, no distended - Psychiatric oriented to time, oriented to person, oriented to place, speech is normal Results - Labs 03/28/20 08:22 03/29/20 07:16 Abnormal Lab Results - Last 24 Hours (Table) 03/28/20 Range/Units 08:22 BUN 8 L (9-20) mg/dL Creatinine 0.60 L (0.66-1.25) mg/dL ALT 56 H (4-49) U/L Total Protein 5.8 L (6.3-8.2) g/dL Albumin 3.1 L (3.5-5.0) g/dL Microbiology - Last 24 Hours (Table) 03/27/20 12:00 Blood Culture - Preliminary Blood No Growth after 24 hours 03/27/20 11:10 Urine Culture - Preliminary Urine,Voided Diabetes panel 03/28/20 Range/Units 08:22 Sodium 137 (137-145) mmol/L Potassium 4.2 (3.5-5.1) mmol/L Chloride 107 (98-107) mmol/L Carbon Dioxide 23 (22-30) mmol/L BUN 8 L (9-20) mg/dL Creatinine 0.60 L (0.66-1.25) mg/dL Glucose 89 (74-99) mg/dL Calcium 8.7 (8.4-10.2) mg/dL AST 42 (17-59) U/L ALT 56 H (4-49) U/L Alkaline Phosphatase 66 (38-126) U/L Total Protein 5.8 L (6.3-8.2) g/dL Albumin 3.1 L (3.5-5.0) g/dL Calcium panel 03/28/20 Range/Units 08:22 Calcium 8.7 (8.4-10.2) mg/dL Phosphorus 3.3 (2.5-4.5) mg/dL Albumin 3.1 L (3.5-5.0) g/dL Pituitary panel 03/28/20 Range/Units 08:22 Sodium 137 (137-145) mmol/L Potassium 4.2 (3.5-5.1) mmol/L Chloride 107 (98-107) mmol/L Carbon Dioxide 23 (22-30) mmol/L BUN 8 L (9-20) mg/dL Creatinine 0.60 L (0.66-1.25) mg/dL Glucose 89 (74-99) mg/dL Calcium 8.7 (8.4-10.2) mg/dL Adrenal panel 03/28/20 Range/Units 08:22 Sodium 137 (137-145) mmol/L Potassium 4.2 (3.5-5.1) mmol/L Chloride 107 (98-107) mmol/L Carbon Dioxide 23 (22-30) mmol/L BUN 8 L (9-20) mg/dL Creatinine 0.60 L (0.66-1.25) mg/dL Glucose 89 (74-99) mg/dL Calcium 8.7 (8.4-10.2) mg/dL Total Bilirubin 0.7 (0.2-1.3) mg/dL AST 42 (17-59) U/L ALT 56 H (4-49) U/L Alkaline Phosphatase 66 (38-126) U/L Total Protein 5.8 L (6.3-8.2) g/dL Albumin 3.1 L (3.5-5.0) g/dL Assessment and Plan Assessment: 70 yo male with hx of abscess along the rectus sheath anterior to the bladder, has hx of inguinal hernia repair on 09/2019. Has been having bothersome LUTS last few days, slight improvement following abscess drainage. UA negative. I discussed with him his symptoms are likely secondary to bladder irritation from the rectus muscle abscess, he also most likely has some underlying BPH. -Flomax 0.4 mg daily -PVR -F/u as an outpatient in 2-3 weeks
[2020-03-29] MEDS ORDERED: methylPREDNISolone SOD SUCCI 40 MG/ML 1 ML VIAL IV STA (17:08)
[2020-03-29] MEDS: ZOLPIDEM 5 MG TAB PO PRN (22:37)
[2020-03-30] MEDS: ACETAMINOPHEN TAB 325 MG TAB PO SCH ×4 (02:15→21:32)
[2020-03-30] MEDS: LEVOTHYROXINE 75 MCG TAB PO SCH (05:38)
[2020-03-30] MEDS: SODIUM CHLORIDE 0.9% 1,000 ML IV SCH ×2 (05:38→17:34)
[2020-03-30] MEDS: BUTALB/APAP/CAFF 50-325-40MG TAB PO PRN ×2 (05:40→21:35)
--- NOTE | 2020-03-30 06:47 | P.CONS ---
History of Present Illness - Reason for Consult Consult date: 03/29/20 abdominal abscess Requesting physician: Scooter Keyes - Chief Complaint fever and abd pain x 1 week - History of Present Illness Patient is a 70-year-old male presenting to the ER 2 days ago with chief complaints of fever dysuria and suprapubic discomfort primarily patient fever and chills has been going on for about a week before he presented to the hospital patient on arrival to the ER was afebrile subsequently spiked a low- grade fever of 100.5 F work-up in the ER did include patient did have a normal white count his urine was negative pepe PCR was negative patient did have a CT of abdominal pelvis which did shows posterior to the left rectus sheath muscle 5.5 cm suspected abscess surgery was consulted and the patient subsequently did have a CT-guided drainage of this fluid collection yesterday fluid has been sent for culture drainage catheter has been placed patient has been started on Zosyn infectious was consulted for further management of antibiotic therapy patient has been complaining of some pain to the lower abdominal area more of a dull aching pain intensity 5-6 over 10 and no radiation with the symptom has been ongoing for about a week patient denies having any URI symptoms no chest pain shortness of breath or cough no diarrhea. Review of Systems Positive point has been mentioned in HPI rest of the systems are negative Past Medical History Past Medical History: GERD/Reflux, Thyroid Disorder History of Any Multi-Drug Resistant Organisms: None Reported Past Surgical History: Hernia Repair, Orthopedic Surgery Past Anesthesia/Blood Transfusion Reactions: No Reported Reaction Past Psychological History: No Psychological Hx Reported Smoking Status: Former smoker Past Alcohol Use History: Occasional Past Drug Use History: None Reported Medications and Allergies Home Medications Medication Instructions Recorded Confirmed Type Aspirin [Adult Low Dose Aspirin EC] 81 mg PO DAILY 03/27/20 03/27/20 History Atorvastatin Calcium [Lipitor] 20 mg PO DAILY 03/27/20 03/27/20 History Levothyroxine Sodium [Synthroid] 75 mcg PO DAILY 03/27/20 03/27/20 History Multivitamins, Thera [Multivitamin 1 tab PO DAILY 03/27/20 03/27/20 History (formulary)] Omeprazole 20 mg PO DAILY 03/27/20 03/27/20 History Zolpidem [Ambien] 5 mg PO HS PRN 03/27/20 03/27/20 History Tamsulosin [Flomax] 0.4 mg PO DAILY #30 cap 03/29/20 Rx Allergies Allergy/AdvReac Type Severity Reaction Status Date / Time levofloxacin [From Levaquin] Allergy Rash/Hives Verified 03/28/20 12:31 ibuprofen [From Advil] AdvReac Swelling Verified 03/28/20 12:31 Physical Exam Vitals: Vital Signs Temp Pulse Resp BP Pulse Ox 03/29/20 07:00 98.4 F 54 L 17 119/74 95 03/29/20 02:53 98.7 F 51 L 18 120/72 98 03/28/20 18:25 98.3 F 56 L 16 110/68 95 03/28/20 15:00 98.7 F 57 L 16 112/73 94 L 03/28/20 13:15 73 16 113/71 97 03/28/20 12:50 71 16 110/68 96 03/28/20 12:20 70 16 107/63 95 Intake and Output 03/28/20 03/29/20 03/29/20 22:59 06:59 14:59 Other: Voiding Method Toilet GENERAL DESCRIPTION: Elderly-aged male lying in bed, no distress. No tachypnea or accessory muscle of respiration use. HEENT: Shows Pallor , no scleral icterus. Oral mucous membrane is dry. NECK: Trachea central, no thyromegaly. LUNGS: Unlabored breathing. Clear to auscultation anteriorly. No wheeze or crackle. HEART: S1, S2, regular rate and rhythm. ABDOMEN: Soft, no tenderness , guarding or rigidity EXTREMITIES: No edema of feet. SKIN: No rash, no masses palpable. NEUROLOGICAL: The patient is awake, alert, oriented x3, mood and affect normal. Results CBC & Chem 7: 03/28/20 08:22 03/29/20 07:16 Labs: Abnormal Lab Results - Last 24 Hours (Table) 03/28/20 03/29/20 Range/Units 08:22 07:16 BUN 8 L (9-20) mg/dL Creatinine 0.60 L 0.55 L (0.66-1.25) mg/dL ALT 56 H (4-49) U/L Total Protein 5.8 L (6.3-8.2) g/dL Albumin 3.1 L (3.5-5.0) g/dL Microbiology - Last 24 Hours (Table) 03/28/20 13:00 Gram Stain - Preliminary Peritoneal Fluid Body Fluid Culture - Preliminary 03/28/20 13:00 Anaerobic Culture - Preliminary Peritoneal Fluid 03/27/20 11:10 Urine Culture - Final Urine,Voided 03/27/20 12:00 Blood Culture - Preliminary Blood No Growth after 24 hours Assessment and Plan Assessment: patient present hospital with fever chills abdominal pain in this patient with abnormal CT abdominal pelvis is suspicious for a 5.5 cm abscess status post CT- guided drainage with cultures currently pending and the patient seem to have resolution of the fever with Zosyn with concern for possible gram-negative pathogen and related to his enteric genna (1) Rectus sheath abscess Current Visit: Yes Status: Acute Code(s): M60.08 - INFECTIVE MYOSITIS, OTHER SITE SNOMED Code(s): 563468092 Plan: 1-we will give the patient Zosyn 3.375 g every 8 hourly while waiting for the cultures of the abscess fluid that has been drained with the discharge antibiot ic pending upon clinic response as well as cultures We will follow on clinical condition and cultures to further adjust medication if needed Thank you for this consultation we will follow the patient along with you Time with Patient: Greater than 30
[2020-03-30 08:01] LABS: African American GFR (CKD) >90 (>60 ml/min/1.73 sqM); Non-African American GFR(CKD) >90 (>60 ml/min/1.73 sqM)
[2020-03-30] MEDS: ATORVASTATIN 20 MG TAB PO SCH (08:40)
[2020-03-30] MEDS: MULTIVITAMINS, THERA 1 EACH TAB PO SCH (08:40)
[2020-03-30] MEDS: PIPERACILLIN-TAZOBACTAM 3.375 GM in SODIUM CHLORIDE 0.9% 100 ML IVPB SCH ×2 (08:40→15:11)
[2020-03-30] MEDS: PANTOPRAZOLE 40 MG TABLET PO SCH (08:40)
[2020-03-30] MEDS: TAMSULOSIN 0.4 MG CAP.ER.24H PO SCH (08:40)
[2020-03-30] MEDS: ASPIRIN 81 MG PO SCH (08:40)
[2020-03-30] MEDS: POLYETHYLENE GLYCOL 3350 17 GM POWD.PACK PO SCH (08:41)
--- NOTE | 2020-03-30 10:57 | P.PN ---
Progress Note - Text Progress Note Date: 03/30/20 Patient is doing well. He has no points of abdominal pain. His radiologic drain has some serous output. On exam is lesser stable. His evidence soft. Status post CT-guided drainage of abdominal abscess. Patient will be most likely discharged home today. He'll follow myself in 1 week.
--- NOTE | 2020-03-30 14:52 | PN ---
PROGRESS NOTE DATE OF SERVICE: 03/30/2020 REASON FOR FOLLOWUP: 1. Rectus sheath abscess. 2. Diarrhea. INTERVAL HISTORY: The patient is currently afebrile. The patient has been breathing comfortably. The patient denies having any chest pain. No shortness of breath or cough. The abdominal pain has improved overall. No output in the drainage catheter. No nausea, no vomiting; however, has been complaining of diarrhea since. This morning with no blood or mucus in the stools . On examination blood pressure is 126/76, pulse of 73, temperature 98.7. He is 96% on room air. General description is an elderly male, lying in bed in no distress. RESPIRATORY SYSTEM: Unlabored breathing, clear to auscultation anteriorly/ HEART: S1, S2. Regular rate and rhythm. ABDOMEN: Soft, no tenderness. Drainage catheter in open wound. LABS: Creatinine 0.59. The abscess fluid culture currently pending. DIAGNOSTIC IMPRESSION AND PLAN: 1. Patient admitted to the hospital with fever, abdominal pain has been diagnosed with rectus sheath abscess, status post CT-guided drainage. Will wait for the culture to finalize. Continue with Zosyn. 2. Patient with diarrhea, possible antibiotic associated. Will check a stool for C diff and if positive and add Questran for symptomatic relief. MMODL / IJN: [id number] /
[2020-03-30] MEDS: CHOLESTYRAMINE (WITH SUGAR) 4 GM PACKET PO SCH (15:08)
--- NOTE | 2020-03-30 15:15 | P.PN ---
Subjective Progress Note Date: 03/30/20 Patient reports abdominal discomfort and diarrhea since last night. He describes his stool as loose and watery. Denies fevers or chills. Reports decreased appetite. No nausea or vomiting. Objective - Vital Signs Vital signs: Vital Signs Temp 98.7 F 03/30/20 13:50 Pulse 92 03/30/20 13:50 Resp 17 03/30/20 13:50 BP 119/74 03/30/20 13:50 Pulse Ox 97 03/30/20 13:50 Intake & Output 03/29/20 03/30/20 03/30/20 18:59 06:59 18:59 Intake Total 1000 300 Output Total 300 Balance 700 300 Intake: Intake, IV Titration 600 300 Amount Sodium Chloride 0.9% 1, 600 300 000 ml @ 100 mls/hr IV . Q10H WEI Rx#:[id number] Oral 400 Output: Post Void Residual 300 Other: Voiding Method Toilet Toilet Toilet # Voids 3 4 - Exam General: The patient is awake and alert, in no distress Eye: there is normal conjunctiva bilaterally. Neck: The neck is supple, there is no JVD. Cardiovascular: Normal S1-S2, no S3-S4, no murmurs. Respiratory: Lungs clear to auscultation bilaterally Gastrointestinal: Abdomen is soft, nontender. Drain in place. Musculoskeletal: There is no pedal edema. Neurological:. Speech is normal. Skin: Skin is warm and dry - Labs CBC & Chem 7: 03/28/20 08:22 03/30/20 07:08 Labs: Abnormal Lab Results - Last 24 Hours (Table) 03/30/20 Range/Units 07:08 Creatinine 0.59 L (0.66-1.25) mg/dL Microbiology - Last 24 Hours (Table) 03/27/20 12:00 Blood Culture - Preliminary Blood No Growth after 72 hours 03/28/20 13:00 Gram Stain - Preliminary Peritoneal Fluid Body Fluid Culture - Preliminary Assessment and Plan Assessment: Intraabdominal abscess s/p hernia repair surgery in september last year Continue zosyn S/p CT guided drainage by IR, now has a drain in place. Cultures sent awaiting results. Followed by general surgery, Diarrhea, C. diff screen ordered. Chronic medical issues: Hypothyroidism Hyperlipidemia Mild COPD Stable Resume home meds Anticipated discharge: Possibly tomorrow Disposition: home
[2020-03-30] MEDS ORDERED: LORazepam 1 MG TAB PO STA (20:30)
[2020-03-31] MEDS: PIPERACILLIN-TAZOBACTAM 3.375 GM in SODIUM CHLORIDE 0.9% 100 ML IVPB SCH ×2 (00:38→07:55)
[2020-03-31] MEDS: ZOLPIDEM 5 MG TAB PO PRN (00:38)
[2020-03-31] MEDS: SODIUM CHLORIDE 0.9% 1,000 ML IV SCH ×2 (04:52→14:10)
[2020-03-31] MEDS: ACETAMINOPHEN TAB 325 MG TAB PO SCH ×2 (04:52→07:55)
[2020-03-31] MEDS: LEVOTHYROXINE 75 MCG TAB PO SCH (05:39)
[2020-03-31] MEDS: BUTALB/APAP/CAFF 50-325-40MG TAB PO PRN ×2 (05:41→11:16)
[2020-03-31] MEDS: POLYETHYLENE GLYCOL 3350 17 GM POWD.PACK PO SCH (07:55)
[2020-03-31] MEDS: TAMSULOSIN 0.4 MG CAP.ER.24H PO SCH (07:55)
[2020-03-31] MEDS: ATORVASTATIN 20 MG TAB PO SCH (07:55)
[2020-03-31] MEDS: ASPIRIN 81 MG PO SCH (07:55)
[2020-03-31] MEDS: PANTOPRAZOLE 40 MG TABLET PO SCH (07:55)
[2020-03-31] MEDS: MULTIVITAMINS, THERA 1 EACH TAB PO SCH (07:56)
[2020-03-31 08:55] LABS: Basophils # (A) 0.1 k/uL (0-0.2); Basophils % (A) 1 %; Eosinophils # (A) 0.1 k/uL (0-0.7); Eosinophils % (A) 1 %; HCT 42.5 % (39.0-53.0); HGB 13.8 gm/dL (13.0-17.5); Lymphocytes # (A) 1.5 k/uL (1.0-4.8); Lymphocytes % (A) 18 %; MCH 28.7 pg (25.0-35.0); MCHC 32.4 g/dL (31.0-37.0); MCV 88.7 fL (80.0-100.0); Mean Platelet Volume 7.4; Monocytes # (A) 0.5 k/uL (0-1.0); Monocytes % (A) 5 %; Neutrophils # (A) 6.1 k/uL (1.3-7.7); Neutrophils % (A) 72 %; Platelet Count 415 k/uL (150-450); RBC 4.79 m/uL (4.30-5.90); RDW 13.2 % (11.5-15.5); WBC 8.4 k/uL (3.8-10.6)
[2020-03-31 09:10] LABS: African American GFR (CKD) >90 (>60 ml/min/1.73 sqM); Anion Gap 6 mmol/L; Blood Urea Nitrogen 9 mg/dL (9-20); Carbon Dioxide 24 mmol/L (22-30); Chloride 108 mmol/L (98-107); Glucose 86 mg/dL (74-99); Non-African American GFR(CKD) >90 (>60 ml/min/1.73 sqM); Sodium 138 mmol/L (137-145)
[2020-03-31] MEDS: CHOLESTYRAMINE (WITH SUGAR) 4 GM PACKET PO SCH (11:12)
--- NOTE | 2020-03-31 12:32 | P.DS ---
Providers Date of admission: 03/27/20 13:39 Attending physician: Estela Lubin MD Consults: 03/27/20 15:23 Consult Physician Routine Consulting Provider: Scooter Keyes Consult Reason/Comments: rectus sheath abscess Do you want consulting provider notified?: Already Contacted 03/27/20 15:34 Consult Physician Routine Consulting Provider: Adán Quinn Consult Reason/Comments: dysuria Do you want consulting provider notified?: Yes 03/28/20 15:40 Consult Physician Routine Consulting Provider: Earlene Shultz Consult Reason/Comments: Medical management Do you want consulting provider notified?: Yes Primary care physician: Physician Nonstaff Hospital Course: This is a 70-year-old male with past medical history significant for hypothyroidism and hyperlipidemia who presented to the emergency room with abdominal pain, fever, and chills. Patient was evaluated in the ER and computed tomography scan of the abdomen showed evidence of intra-abdominal abscess. Patient was admitted to the hospital and was treated with broad-spectrum antibiotic and IV fluid. He underwent abscess drainage with interventional radiology and a drain was kept in place. Patient was seen by general surgery and infectious disease. Would finish antibiotic course with Augmentin twice daily as directed. Follow-up with general surgery in the office for drain removal next week. Patient will be discharged home in a stable condition. For further details about this hospitalization please refer to the electronic chart. Patient Condition at Discharge: Fair Plan - Discharge Summary Discharge Rx Participant: No New Discharge Prescriptions: New Tamsulosin [Flomax] 0.4 mg PO DAILY #30 cap Amoxic-Pot Clav 875-125Mg [Augmentin 875-125] 1 tab PO Q12HR #20 tab Butalb/APAP/Caff 50-325-40Mg [Fioricet 50-325-40] 1 each PO Q4HR PRN #10 tab PRN Reason: Headache Continue Zolpidem [Ambien] 5 mg PO HS PRN PRN Reason: Insomnia Omeprazole 20 mg PO DAILY Multivitamins, Thera [Multivitamin (formulary)] 1 tab PO DAILY Aspirin [Adult Low Dose Aspirin EC] 81 mg PO DAILY Levothyroxine Sodium [Synthroid] 75 mcg PO DAILY Atorvastatin Calcium [Lipitor] 20 mg PO DAILY Discharge Medication List Aspirin [Adult Low Dose Aspirin EC] 81 mg PO DAILY 03/27/20 [History] Atorvastatin Calcium [Lipitor] 20 mg PO DAILY 03/27/20 [History] Levothyroxine Sodium [Synthroid] 75 mcg PO DAILY 03/27/20 [History] Multivitamins, Thera [Multivitamin (formulary)] 1 tab PO DAILY 03/27/20 [History] Omeprazole 20 mg PO DAILY 03/27/20 [History] Zolpidem [Ambien] 5 mg PO HS PRN 03/27/20 [History] Tamsulosin [Flomax] 0.4 mg PO DAILY #30 cap 03/29/20 [Rx] Amoxic-Pot Clav 875-125Mg [Augmentin 875-125] 1 tab PO Q12HR #20 tab 03/31/20 [Rx] Butalb/APAP/Caff 50-325-40Mg [Fioricet 50-325-40] 1 each PO Q4HR PRN #10 tab 03/31/20 [Rx] Follow up Appointment(s)/Referral(s): Kael Candelario MD [STAFF PHYSICIAN] - 2 Weeks None,Stated [REFERRING] - 1-2 days Scooter Keyes MD [STAFF PHYSICIAN] - 1 Week Discharge Disposition: HOME SELF-CARE
--- NOTE | 2020-03-31 13:58 | PN ---
PROGRESS NOTE DATE OF SERVICE: 03/31/2020 REASON FOR FOLLOWUP: Possible rectus sheath hematoma. INTERVAL HISTORY: The patient is currently afebrile. The patient is breathing comfortably. Denies having any chest pain. No shortness of breath or cough. No nausea, vomiting. No abdominal pain or diarrhea. PHYSICAL EXAMINATION: Blood pressure 119/70 with a pulse of 55. Temperature is 97.8. He is 96% on room air. General description: The patient is an elderly male lying in bed in no distress. Respiratory system: Unlabored breathing. Clear to auscultation anteriorly. Heart S1, S2. Regular rate and rhythm. Abdomen soft. No tenderness. The drainage catheter has no output. LAB DATA: Hemoglobin 13.8, white count 8.4, creatinine 0.67. Culture has been negative so far. DIAGNOSTIC IMPRESSION AND PLAN: Patient admitted to the hospital with fever, abdominal pain, diagnosed with possible hematoma versus abscess. Culture has been negative status post CT-guided drainage making more likely hematoma. The drainage catheter will be discontinued to decrease risk of secondary infection. Will give a short course of oral Augmentin on discharge and close outpatient followup. MMODL / IJN: [id number] /
--- NOTE | 2020-03-31 15:00 | P.PN ---
Subjective Progress Note Date: 03/31/20 CHIEF COMPLAINT: Status post CT-guided drain and abdominal abscess HISTORY OF PRESENT ILLNESS: The patient is a 70-year-old male with previous history of left inguinal hernia repair with complication of an abscess. He status post CT-guided drainage of abdominal wall abscesses 03/28/2020. He is postprocedure day 3. He's been followed by infectious disease. He denies any abdominal pain. He is tolerating diet. He is eager to go home. He has a drain. ROS: No reports of nausea and vomiting. No bowel movements. No fevers or chills. No new chest pain. No productive sputum PHYSICAL EXAM: VITAL SIGNS: Reviewed CONSTITUTIONAL: Well developed and in no acute distress. EYES: Conjuctivae without sclera icterus. Extraocular movements grossly intact. HEAD, EARS, NOSE, THROAT: Moist buccal mucosa. Head is atraumatic, normocephalic. Hears conversational speech. No nasal drainage. NECK: Supple. No thyroidomegaly. RESPIRATORY: Non-labored respirations and equal bilateral excursions. CARDIOVASCULAR: Palpable 2+ radial pulses. Regular rate. Regular rhythm. ABDOMEN: Soft. No peritonitis. CT-guided drain discontinued from above the pubis MUSCULOSKELETAL: No gross deformity of the lower extremities noted. No clubbing. No cyanosis. SKIN: Good skin turgor. Well perfused. NEUROLOGIC: Cranial nerves II through XII grossly intact. No focal or lateralizing signs. PSYCH: Appropriate affect. Alert and oriented to person, place and time. CLINICAL LABS: White blood cell count normal at 8400. MICROBIOLOGY: No growth to date STUDIES: CT of the abdomen and pelvis independently reviewed by me demonstrating fluid collection along the left lower abdominal wall along peritoneum RADIOLOGY: Report reviewed with 5 cm peritoneal fluid collection with CT guided drainage report reviewed with 20 mL of fluid removed from abscess ASSESSMENT: 1. Intra-abdominal abscess PLAN: 1. Antibiotic management per infectious disease which is augmentin 2. I personally discontinued his CT-guided drain without sequelae. Objective - Vital Signs Vital signs: Vital Signs Temp 97.8 F 03/31/20 07:00 Pulse 55 L 03/31/20 07:00 Resp 16 03/31/20 07:00 BP 119/78 03/31/20 07:00 Pulse Ox 96 03/31/20 07:00 Intake & Output 03/30/20 03/31/2003/31/20 18:59 06:59 18:59 Other: Voiding Method Toilet Toilet # Voids 4 - Labs CBC & Chem 7: 03/31/20 08:10 03/31/20 08:10 Labs: Abnormal Lab Results - Last 24 Hours (Table) 03/31/20 Range/Units 08:10 Chloride 108 H (98-107) mmol/L Microbiology - Last 24 Hours (Table) 03/28/20 13:00 Gram Stain - Final Peritoneal Fluid Body Fluid Culture - Final 03/27/20 12:00 Blood Culture - Preliminary Blood No Growth after 72 hours Assessment and Plan (1) Rectus sheath abscess Current Visit: Yes Status: Acute Code(s): M60.08 - INFECTIVE MYOSITIS, OTHER SITE SNOMED Code(s): 284621845
[2020-03-31 15:26] VITALS: BP 131/84; PULSE 59; RESP 17; TEMP 98
== END 2020-03-31 15:56 | disposition home or self-care (01) | DRG 558 ==
LOC: EC 10:38 → 4SSUR 13:39
PROVIDERS: ADMIT Family Medicine; ATTEND Family Medicine
PROC: 0W9F30Z Drainage of Abdominal Wall with Drainage Device, Percutaneous Approach (ICD-10-PCS; principal; 2020-03-28)
DX: M60.08 Infective myositis, other site (principal); E78.5 Hyperlipidemia, unspecified; E03.9 Hypothyroidism, unspecified; J44.9 Chronic obstructive pulmonary disease, unspecified; N40.1 Benign prostatic hyperplasia with lower urinary tract symptoms; K21.9 Gastro-esophageal reflux disease without esophagitis; G43.909 Migraine, unspecified, not intractable, without status migrainosus; Z79.890 Hormone replacement therapy; Z11.59 Encounter for screening for other viral diseases; Z79.899 Other long term (current) drug therapy; Z79.82 Long term (current) use of aspirin; Z88.6 Allergy status to analgesic agent; Z88.1 Allergy status to other antibiotic agents; Z98.890 Other specified postprocedural states; Z80.42 Family history of malignant neoplasm of prostate; Z87.891 Personal history of nicotine dependence
CPT/HCPCS: 36415; 71046; 74177; 75989; 77012; 80048; 80053; 81003; 82565; 83605; 83735; 84100; 84484; 85025; 85610; 86308; 87040; 87070; 87075; 87086; 87205; 88108; 88305; 96360; 96365; 99285

== ENCOUNTER → 2020-07-23 | Outpatient (CLI) | payer MEDICARE ==
[2020-07-23 17:02] LABS: African American GFR (CKD) >90 (>60 ml/min/1.73 sqM); Blood Urea Nitrogen 10 mg/dL (9-20); Non-African American GFR(CKD) >90 (>60 ml/min/1.73 sqM)
--- NOTE | 2020-07-24 08:04 | CT ---
EXAMINATION TYPE: CT abdomen pelvis w con DATE OF EXAM: 07/23/2020 COMPARISON: 03/27/2020 INDICATION: difficulty with urination DLP: 927.3 mGycm, Automated exposure control for dose reduction was used. CONTRAST: 100 mL of Isovue 300. Study performed with Oral Contrast TECHNIQUE: Axial images were obtained from above the diaphragm to the pubic rami in the axial plane a t 5 mm thick sections. Reconstructed images are reviewed on the computer in the coronal plane. FINDINGS: Limited CT sections are obtained the lung bases. There is a 0.5 cm nodule in the periphery of the ri ght middle lobe. Series [address] ABDOMEN: Liver: Normal Spleen: Normal Pancreas: Normal Adrenal glands: The adrenal glands are normal. Gallbladder: Normal Kidneys: No masses are evident. No hydronephrosis is present. No cysts are present. Delayed images were obtained through the kidneys, which remain unremarkable. Aorta: Vascular calcification is within the aorta. Inferior vena cava: Normal. CT PELVIS: Right inguinal hernia is present. There appear to be some changes in the left inguinal reg ion. Small amount of mesenteric fat may be within the left inguinal region. Findings can be related t o prior abscess post inflammatory scarring. No residual abscess or hematoma is evident. Loops of bowel within the abdomen and pelvis are normal. There are loops of bowel which are incom pletely distended or lack oral contrast limiting their evaluation. Appendix: Normal as visualized. Urinary bladder: Normal. There is moderate distention which is not considered unusual. Genitourinary structures: Prostate hypertrophy is present. Osseous structures: No suspicious lytic or sclerotic lesions. Facet degenerative changes are in the l ower lumbar spine. IMPRESSIONS: 1. Postinflammatory change in the left inguinal region. No residual abscess or hematoma is evident. 2. Small right inguinal hernia. 3. Small nodule right middle lobe. Follow-up exam in 6 months is recommended.
== END | disposition home or self-care (01) ==
LOC: RADCTMAIN 16:29
PROVIDERS: ATTEND Urology
DX: K40.90 Unilateral inguinal hernia, without obstruction or gangrene, not specified as recurrent (principal); R93.5 Abnormal findings on diagnostic imaging of other abdominal regions, including retroperitoneum; N28.1 Cyst of kidney, acquired; L02.211 Cutaneous abscess of abdominal wall; Z88.1 Allergy status to other antibiotic agents; Z88.6 Allergy status to analgesic agent
CPT/HCPCS: 82565; 84520; 74177; 36415; Q9967